=== PATIENT | female | born 1970 | race American Indian/Alaskan Native ===

== ENCOUNTER 2017-01-31 09:47 | Emergency (ER) | payer OTHER ==
[2017-01-31 09:59] VITALS: BP 156/101
--- NOTE | 2017-01-31 10:34 | Emergency Department Report ---
ED Female HPI - General Chief complaint: Back Pain/Injury Stated complaint: BACK PAIN/PAINFUL URINATION Time Seen by Provider: 01/31/17 10:30 Source: patient Mode of arrival: Ambulatory Limitations: No Limitations - History of Present Illness Initial comments: Patient complaining of UTI signs and symptoms for the past 2 months. Patient complains of dysuria, without vaginal discharge, also denies dyspareunia, fever , chills, nausea vomiting or diarrhea. MD Complaint: dysuria, pelvic pain -: Gradual, month(s) Radiation: L flank, R flank Severity: mild Severity scale (0 -10): 3 Quality: burning - Related Data Previous Rx's Medication Instructions Recorded Last Taken Type HYDROcodone/APAP 5-325 [[place] 1 each PO Q6HR PRN #20 tablet 06/21/15 Unknown Rx 5/325] Meloxicam [Mobic] 7.5 mg PO QDAY #30 tablet 06/21/15 Unknown Rx Sulfamethoxazole/Trimethoprim 1 each PO BID #20 tablet 01/31/17 Unknown Rx [Bactrim DS TAB] Allergies Allergy/AdvReac Type Severity Reaction Status Date / Time No Known Allergies Allergy Verified 06/21/15 10:29 ED Review of Systems ROS: Stated complaint: BACK PAIN/PAINFUL URINATION Other details as noted in HPI Constitutional: denies: chills, fever Eyes: denies: eye pain, eye discharge, vision change ENT: denies: ear pain, throat pain Respiratory: denies: cough, shortness of breath, wheezing Cardiovascular: denies: chest pain, palpitations Endocrine: no symptoms reported Gastrointestinal: denies: abdominal pain, nausea, diarrhea Genitourinary: dysuria, frequency, hematuria. denies: urgency, discharge Musculoskeletal: back pain. denies: joint swelling, arthralgia Skin: denies: rash, lesions Neurological: denies: headache, weakness, paresthesias Psychiatric: denies: anxiety, depression Hematological/Lymphatic: denies: easy bleeding, easy bruising ED Past Medical Hx - Past Medical History Previous Medical History?: Yes Hx Hypertension: Yes Hx Arthritis: Yes - Surgical History Past Surgical History?: Yes Additional Surgical History: GASTRIC BYPASS - Social History Smoking Status: Never Smoker Substance Use Type: Alcohol, Non Opiate Pain, Prescribed - Medications Home Medications: Home Medications Medication Instructions Recorded Confirmed Last Taken Type HYDROcodone/APAP 5-325 [[place] 1 each PO Q6HR PRN #20 tablet 06/21/15 Unknown Rx 5/325] Meloxicam [Mobic] 7.5 mg PO QDAY #30 tablet 06/21/15 Unknown Rx Sulfamethoxazole/Trimethoprim 1 each PO BID #20 tablet 01/31/17 Unknown Rx [Bactrim DS TAB] ED Physical Exam - General Limitations: No Limitations General appearance: alert, in no apparent distress - Head Head exam: Present: atraumatic, normocephalic - Eye Eye exam: Present: normal appearance - ENT ENT exam: Present: mucous membranes moist - Neck Neck exam: Present: normal inspection - Respiratory Respiratory exam: Present: normal lung sounds bilaterally. Absent: respiratory distress, wheezes, rales - Cardiovascular Cardiovascular Exam: Present: regular rate. Absent: normal rhythm, bradycardia , tachycardia - GI/Abdominal GI/Abdominal exam: Present: soft. Absent: distended, tenderness, guarding, rebound, rigid - Extremities Exam Extremities exam: Present: normal inspection. Absent: pedal edema - Back Exam Back exam: Present: full ROM. Absent: CVA tenderness (R), CVA tenderness (L) - Neurological Exam Neurological exam: Present: alert, oriented X3, normal gait. Absent: altered - Skin Skin exam: Present: warm, dry, intact, normal color ED Course Vital Signs 01/31/17 09:55 Temperature 97.7 F Pulse Rate 98 H Respiratory 20 Rate Blood Pressure 156/101 O2 Sat by Pulse 98 Oximetry Critical care attestation.: If time is entered above; I have spent that time in minutes in the direct care of this critically ill patient, excluding procedure time. ED Disposition Clinical Impression: Dysuria Disposition: DISCHARGED TO HOME OR SELFCARE Is pt being admited?: No Condition: Stable Instructions: Dysuria (ED) Prescriptions: Sulfamethoxazole/Trimethoprim [Bactrim DS TAB] 1 each PO BID #20 tablet Referrals: CELIA YODER MD [Primary Care Provider] - 3-5 Days Forms: Work/School Release Form
[2017-01-31 11:02] LABS: Bacteria,Urine 2+ /HPF (Negative); Bilirubin,Urine NEG (Negative); Blood,Urine MOD (Negative); Ketones,Urine NEG (Negative); Leukocyte Esterase,Urine NEG (Negative); Mucus,Urine FEW /HPF; Nitrite,Urine NEG (Negative); Protein,Urine <15 mg/dL mg/dL (Negative); Urobilinogen,Urine < 2.0 mg/dL (<2.0)
== END 2017-01-31 11:23 | disposition home or self-care (01) ==
LOC: ED 09:47
DX: R30.0 Dysuria (principal); R10.2 Pelvic and perineal pain; I10 Essential (primary) hypertension; M19.90 Unspecified osteoarthritis, unspecified site
CPT/HCPCS: 81001; 81025; 99283

== ENCOUNTER 2017-03-02 12:44 | Emergency (ER) | payer OTHER ==
[2017-03-02 12:52] VITALS: BP 146/90
[2017-03-02] MEDS ORDERED: DECADRON IM ONE (14:55)
[2017-03-02] MEDS ORDERED: TORADOL IM ONE (14:55)
--- NOTE | 2017-03-02 14:59 | Emergency Department Report ---
ED General Adult HPI - General Chief complaint: Extremity Injury, Lower Stated complaint: HIP PAIN/TRAVELING DOWN LEG Time Seen by Provider: 03/02/17 14:43 Source: patient Mode of arrival: Ambulatory Limitations: No Limitations - History of Present Illness Initial comments: Patient comes into the ER today complaining of lower back pain as well as left leg pain for the past 2 weeks. Patient denies any injury. Patient states that the pain is felt all the way into her left lower leg. Patient states the pain is worse with ambulation and movement. Patient denies any chest pain, shortness of breath, leg swelling. Patient's describes the pain as a burning sensation with sometimes a numb sensation about it. Patient has been taking [id number] medicine without any symptomatic relief. -: week(s) (2) - Related Data Previous Rx's Medication Instructions Recorded Last Taken Type HYDROcodone/APAP 5-325 [[place] 1 each PO Q6HR PRN #20 tablet 06/21/15 Unknown Rx 5/325] Meloxicam [Mobic] 7.5 mg PO QDAY #30 tablet 06/21/15 Unknown Rx Sulfamethoxazole/Trimethoprim 1 each PO BID #20 tablet 01/31/17 Unknown Rx [Bactrim DS TAB] Cyclobenzaprine [Flexeril] 10 mg PO BID PRN #15 tablet 03/02/17 Unknown Rx predniSONE [Deltasone] 60 mg PO QDAY 5 Days 03/02/17 Unknown Rx traMADol [Ultram] 50 mg PO Q6HR PRN #20 tablet 03/02/17 Unknown Rx Allergies Allergy/AdvReac Type Severity Reaction Status Date / Time No Known Allergies Allergy Verified 06/21/15 10:29 ED Review of Systems ROS: Stated complaint: HIP PAIN/TRAVELING DOWN LEG Other details as noted in HPI Constitutional: denies: chills, fever Eyes: denies: eye pain, eye discharge, vision change ENT: denies: ear pain, throat pain Respiratory: denies: cough, shortness of breath, SOB with exertion, SOB at rest , wheezing Cardiovascular: denies: chest pain, palpitations, edema Endocrine: no symptoms reported Gastrointestinal: denies: abdominal pain, nausea, diarrhea Genitourinary: denies: urgency, dysuria, discharge Musculoskeletal: back pain, myalgia. denies: joint swelling, arthralgia Skin: denies: rash, lesions Neurological: denies: headache, weakness, paresthesias Psychiatric: denies: anxiety, depression Hematological/Lymphatic: denies: easy bleeding, easy bruising ED Past Medical Hx - Past Medical History Previous Medical History?: Yes Hx Hypertension: Yes Hx Arthritis: Yes - Surgical History Past Surgical History?: Yes Additional Surgical History: GASTRIC BYPASS - Social History Smoking Status: Never Smoker Substance Use Type: Alcohol, Prescribed - Medications Home Medications: Home Medications Medication Instructions Recorded Confirmed Last Taken Type HYDROcodone/APAP 5-325 [[place] 1 each PO Q6HR PRN #20 tablet 06/21/15 Unknown Rx 5/325] Meloxicam [Mobic] 7.5 mg PO QDAY #30 tablet 06/21/15 Unknown Rx Sulfamethoxazole/Trimethoprim 1 each PO BID #20 tablet 01/31/17 Unknown Rx [Bactrim DS TAB] Cyclobenzaprine [Flexeril] 10 mg PO BID PRN #15 tablet 03/02/17 Unknown Rx predniSONE [Deltasone] 60 mg PO QDAY 5 Days 03/02/17 Unknown Rx traMADol [Ultram] 50 mg PO Q6HR PRN #20 tablet 03/02/17 Unknown Rx ED Physical Exam - General Limitations: No Limitations General appearance: alert, in no apparent distress - Head Head exam: Present: atraumatic, normocephalic - Eye Eye exam: Present: normal appearance - ENT ENT exam: Present: mucous membranes moist - Neck Neck exam: Present: normal inspection - Respiratory Respiratory exam: Present: normal lung sounds bilaterally. Absent: respiratory distress, decreased breath sounds - Cardiovascular Cardiovascular Exam: Present: regular rate, normal rhythm. Absent: systolic murmur, diastolic murmur, rubs, gallop - GI/Abdominal GI/Abdominal exam: Present: soft, normal bowel sounds. Absent: tenderness - Extremities Exam Extremities exam: Present: normal inspection, tenderness (left buttocks tenderness), normal capillary refill. Absent: full ROM (positive left leg straight leg raise.), pedal edema, joint swelling, calf tenderness - Back Exam Back exam: Present: normal inspection, tenderness (left lateral paraspinous tenderness as well as left SI joint tenderness.), paraspinal tenderness. Absent : full ROM (Limited range of motion secondary to pain.), CVA tenderness (R), CVA tenderness (L), rash noted - Neurological Exam Neurological exam: Present: alert, oriented X3, CN II-XII intact, reflexes normal. Absent: motor sensory deficit - Psychiatric Psychiatric exam: Present: normal affect, normal mood - Skin Skin exam: Present: warm, dry, intact, normal color. Absent: rash ED Course Vital Signs 03/02/17 12:48 Temperature 98.5 F Pulse Rate 94 H Respiratory 20 Rate Blood Pressure 146/90 O2 Sat by Pulse 100 Oximetry ED Medical Decision Making - Medical Decision Making Patient is nontoxic and hemodynamically stable. Physical exam is not consistent with any DVT. Examination is consistent with left-sided sciatica. Patient has pinpoint tenderness along route of the left sciatic nerve. Patient has no tenderness in left lower leg and left thigh even though she feels pain in that area. I will start patient on medications appropriately and refer her to neurosurgeon for further evaluation if symptoms fail to resolve or worsen. Patient is in agreement with treatment plan and patient is stable for discharge. Critical care attestation.: If time is entered above; I have spent that time in minutes in the direct care of this critically ill patient, excluding procedure time. ED Disposition Clinical Impression: Low back pain, Sciatica of left side Disposition: - TO HOME OR SELFCARE Is pt being admited?: No Does the pt Need Aspirin: No Condition: Good Instructions: Sciatica (ED) Prescriptions: Cyclobenzaprine [Flexeril] 10 mg PO BID PRN #15 tablet PRN Reason: Muscle Spasm predniSONE [Deltasone] 60 mg PO QDAY 5 Days traMADol [Ultram] 50 mg PO Q6HR PRN #20 tablet PRN Reason: Pain Referrals: PRIMARY CARE, [Primary Care Provider] - 3-5 Days ZAK GARG MD [Staff Physician] - 3-5 Days Time of Disposition: 15:04
[2017-03-02] MEDS ORDERED: TORADOL ONE (15:00)
[2017-03-02] MEDS ORDERED: DECADRON ONE (15:00)
== END 2017-03-02 15:31 | disposition home or self-care (01) ==
LOC: ED 12:44
DX: M54.42 Lumbago with sciatica, left side (principal); M19.90 Unspecified osteoarthritis, unspecified site; I10 Essential (primary) hypertension
CPT/HCPCS: 96372; 99282; J1100; J1885